=== PATIENT | female | born 1980 | race Caucasian/White ===

== ENCOUNTER 2016-11-13 19:51 | Inpatient (IN) | payer OTHER, MEDICAID ==
[~2016-11-13] VITALS: Ht 165.1 cm; Wt 85.3 kg
[2016-11-13 20:15] VITALS: BP 110/67; PULSE 63; RESP 18; TEMP 97.3; O2SAT 97
[2016-11-13] MEDS ORDERED: cefTRIAXone 1 GM in D5W 50 ML IV ONE (22:15)
[2016-11-13] MEDS ORDERED: POTASSIUM CHLORIDE 10 MEQ TAB.PRT.SR PO PRN (22:15)
[2016-11-13] MEDS ORDERED: DOCUSATE SODIUM 100 MG CAPSULE PO PRN (22:15)
[2016-11-13] MEDS ORDERED: LORazepam 2 MG/ML VIAL IVP PRN (22:15)
[2016-11-13] MEDS ORDERED: ONDANSETRON HCL 4 MG/2 ML VIAL IVP PRN (22:15)
[2016-11-13] MEDS ORDERED: ACETAMINOPHEN 325 MG TABLET PO PRN (22:15)
[2016-11-13] MEDS ORDERED: BEN50 PO (22:26)
[2016-11-13] MEDS ORDERED: LOP600 PO (22:26)
[2016-11-13] MEDS ORDERED: GLIM1TAB PO (22:26)
[2016-11-13] MEDS ORDERED: LISI-209 PO (22:26)
[2016-11-13] MEDS ORDERED: IBUP-1480 PO (22:26)
[2016-11-13] MEDS ORDERED: OMEP-130 PO (22:26)
[2016-11-13] MEDS ORDERED: SYN75 PO (22:26)
[2016-11-13] MEDS ORDERED: [UNRECOGNIZED DRUG - CODE] PO (22:26)
[2016-11-13] MEDS ORDERED: CALC500T3 PO (22:26)
[2016-11-13] MEDS ORDERED: METF750T PO (22:26)
[2016-11-13 22:52] LABS: BASOPHILS % (AUTO) 0.1 % (0.0-2.0); HEMATOCRIT 34.8 % (36-48); HEMOGLOBIN 11.8 g/dL (12.0-16.0); LYMPHOCYTES # (AUTO) 1.2 K/uL (1.0-5.5); LYMPHOCYTES % (AUTO) 13.3 % (20.5-51.5); MEAN CORPUSCULAR HEMOGLOBIN 30 pg (27-31); MEAN CORPUSCULAR HGB CONC 34 % (32-36); MEAN CORPUSCULAR VOLUME 89 fL (79.0-98.0); MONOCYTES # (AUTO) 0.3 K/uL (0.0-1.0); MONOCYTES % (AUTO) 3.8 % (1.7-9.3); NEUTROPHILS # (AUTO) 7.6 K/uL (1.8-7.7); NEUTROPHILS % (AUTO) 82.8 % (40.0-70.0); PLATELET COUNT (AUTO) 221 K/uL (130-430); RED CELL DISTRIBUTION WIDTH 13.2 % (9.0-15.0); WHITE BLOOD COUNT (AUTO) 9.1 K/uL (4.8-10.8)
[2016-11-13] MEDS ORDERED: cefTRIAXone 1 GM IVPB PREMIX 50 ML IV ONE (23:22)
[2016-11-13] MEDS: D5NS 1,000 ML IV SCH (23:25)
[2016-11-14 00:14] LABS: ALBUMIN 3.8 g/dL (3.4-4.8); CALCIUM 10.1 mg/dL (8.4-11.0); CREATININE 0.93 mg/dL (0.55-1.30); TOTAL BILIRUBIN 0.6 mg/dL (0.0-1.0); TOTAL PROTEIN, SERUM 8.2 g/dL (6.4-8.3)
[2016-11-14 00:18] LABS: PROTHROMBIN TIME 10.7 SECS (9.5-12.5)
[2016-11-14 01:02] VITALS: BP_SYST 105; BP_SYST 137; BP_DIAS 59; BP_DIAS 69; PULSE 58; PULSE 93; RESP 20; RESP 24; TEMP 97.2; TEMP 97.6; O2SAT 96; O2SAT 99
[2016-11-14] MEDS: MORPHINE 2 MG/ML INJ. SYRINGE IVP PRN ×3 (01:22→14:31)
[2016-11-14 04:50] VITALS: BP_SYST 106; BP_SYST 140; BP_DIAS 66; BP_DIAS 90; PULSE 57; PULSE 84; RESP 22; RESP 24; TEMP 97.6; TEMP 97.7; O2SAT 97; O2SAT 99
[2016-11-14 06:32] LABS: BASOPHILS % (AUTO) 0.1 % (0.0-2.0); EOSINOPHILS % (AUTO) 0.1 % (0.0-4.0); HEMATOCRIT 31.6 % (36-48); HEMOGLOBIN 10.9 g/dL (12.0-16.0); LYMPHOCYTES # (AUTO) 2.8 K/uL (1.0-5.5); LYMPHOCYTES % (AUTO) 34.8 % (20.5-51.5); MEAN CORPUSCULAR HEMOGLOBIN 31 pg (27-31); MEAN CORPUSCULAR HGB CONC 34 % (32-36); MEAN CORPUSCULAR VOLUME 90 fL (79.0-98.0); MONOCYTES # (AUTO) 0.8 K/uL (0.0-1.0); MONOCYTES % (AUTO) 9.4 % (1.7-9.3); NEUTROPHILS # (AUTO) 4.5 K/uL (1.8-7.7); NEUTROPHILS % (AUTO) 55.6 % (40.0-70.0); PLATELET COUNT (AUTO) 200 K/uL (130-430); RED CELL DISTRIBUTION WIDTH 13.3 % (9.0-15.0); WHITE BLOOD COUNT (AUTO) 8.1 K/uL (4.8-10.8)
[2016-11-14 06:37] LABS: CALCIUM 9.3 mg/dL (8.4-11.0); CREATININE 0.85 mg/dL (0.55-1.30); POTASSIUM 3.7 mmol/L (3.5-5.1)
[2016-11-14 08:00] VITALS: BP 129/84; PULSE 64; RESP 18; TEMP 98.7; O2SAT 99
[2016-11-14] MEDS ORDERED: POLYMYXIN 500,000/BACIT.10,000 UNITS in NS IRR 1 L IR ONE (09:51)
[2016-11-14] MEDS ORDERED: DEXTROSE 50% JECT 50 ML DISP.SYRIN IVP PRN (10:00)
[2016-11-14] MEDS ORDERED: LR 1,000 ML IV SCH (10:22)
[2016-11-14] MEDS ORDERED: HYDROmorphone 2 MG/ML VIAL IVP PRN ×2 (10:30)
[2016-11-14] MEDS ORDERED: ONDANSETRON HCL 4 MG/2 ML VIAL IVP PRN (10:30)
[2016-11-14] MEDS ORDERED: MEPERIDINE HCL/PF 25 MG/ML DISP.SYRIN IVP PRN ×2 (10:30)
[2016-11-14] MEDS ORDERED: HYDROmorphone 1 MG INJ. 1 MG/ML AMPUL IVP PRN (10:30)
[2016-11-14] MEDS: D5NS 1,000 ML IV SCH ×2 (10:45→23:15)
[2016-11-14] MEDS ORDERED: HYDROmorphone 1 MG INJ. 1 MG/ML AMPUL ONE (11:55)
[2016-11-14 12:05] VITALS: BP 119/68; PULSE 78; RESP 16; TEMP 97.5; O2SAT 93
[2016-11-14] MEDS ORDERED: fentaNYL CITRATE 250 MCG/5 ML AMP ONE (14:00)
[2016-11-14] MEDS ORDERED: CEFAZOLIN 2 GM IVPB PREMIX 50 ML IV ONE (14:00)
[2016-11-14] MEDS ORDERED: LR 1,000 ML IV.SOLN IV ONE (14:00)
[2016-11-14] MEDS ORDERED: ONDANSETRON HCL 4 MG/2 ML VIAL ONE (14:00)
[2016-11-14] MEDS ORDERED: BACITRACIN 50,000 UNITS VIAL ONE (14:00)
[2016-11-14] MEDS ORDERED: SEVOFLURANE 15 MIN GAS INH ONE (14:00)
[2016-11-14] MEDS ORDERED: MIDAZOLAM HCL 5 MG/5 ML VIAL ONE (14:00)
[2016-11-14] MEDS ORDERED: POLYMYXIN B SULFATE 500,000 UNITS VIAL ONE (14:00)
[2016-11-14] MEDS ORDERED: NS IRRIG SOLN 1000 ML IR ONE (14:00)
[2016-11-14] MEDS ORDERED: PROPOFOL 200MG/ 20ML VIAL (DIPRIVAN) IV ONE (14:00)
[2016-11-14] MEDS: CEFAZOLIN 2 GM IVPB PREMIX 50 ML IV SCH ×2 (14:36→22:29)
[2016-11-14] MEDS: INSULIN ASPART 100 UNITS/ML, 10 ML VIAL (NovoLOG) SUBCUT PRN ×2 (18:22→21:24)
[2016-11-14 19:50] VITALS: BP 115/66; PULSE 80; RESP 20; TEMP 98.1; O2SAT 96
[2016-11-14 19:55] VITALS: BP 115/66; PULSE 80; RESP 18; TEMP 98.1; O2SAT 96
[2016-11-14] MEDS: cefTRIAXone 1 GM in D5W 50 ML IV SCH (23:21)
[2016-11-15] VITALS (7 sets, daily range): BP systolic 105–132; BP diastolic 55–75; PULSE 56–99; RESP 16–21; TEMP 97.5–99; O2SAT 95–100
[2016-11-15] MEDS: MAGNESIUM SULFATE 50 ML IV PRN (00:46)
[2016-11-15] MEDS: CEFAZOLIN 2 GM IVPB PREMIX 50 ML IV SCH (06:07)
[2016-11-15] MEDS: INSULIN ASPART 100 UNITS/ML, 10 ML VIAL (NovoLOG) SUBCUT PRN ×4 (06:34→21:45)
[2016-11-15 07:20] LABS: BASOPHILS # (AUTO) 0.1 K/uL (0.0-0.2); BASOPHILS % (AUTO) 0.7 % (0.0-2.0); EOSINOPHILS % (AUTO) 0.1 % (0.0-4.0); HEMOGLOBIN 9.3 g/dL (12.0-16.0); LYMPHOCYTES # (AUTO) 1.7 K/uL (1.0-5.5); LYMPHOCYTES % (AUTO) 16.5 % (20.5-51.5); MEAN CORPUSCULAR HEMOGLOBIN 29 pg (27-31); MEAN CORPUSCULAR HGB CONC 32 % (32-36); MEAN CORPUSCULAR VOLUME 91 fL (79.0-98.0); MONOCYTES # (AUTO) 0.5 K/uL (0.0-1.0); MONOCYTES % (AUTO) 4.9 % (1.7-9.3); NEUTROPHILS # (AUTO) 7.8 K/uL (1.8-7.7); NEUTROPHILS % (AUTO) 77.8 % (40.0-70.0); PLATELET COUNT (AUTO) 207 K/uL (130-430); RED BLOOD CELL COUNT(AUTO) 3.17 MIL/uL (4.2-6.2); RED CELL DISTRIBUTION WIDTH 13.2 % (9.0-15.0); WHITE BLOOD COUNT (AUTO) 10.1 K/uL (4.8-10.8)
[2016-11-15 07:45] LABS: CALCIUM 8.8 mg/dL (8.4-11.0); CREATININE 0.9 mg/dL (0.55-1.30); POTASSIUM 3.8 mmol/L (3.5-5.1)
[2016-11-15] MEDS: NACL 0.9% 1,000 ML IV SCH ×2 (11:06→21:42)
[2016-11-15] MEDS: cefTRIAXone 1 GM in D5W 50 ML IV SCH (21:41)
[2016-11-15] MEDS: ZOLPIDEM TARTRATE 5 MG TABLET PO PRN (21:43)
[2016-11-16 07:19] LABS: BASOPHILS % (AUTO) 0.1 % (0.0-2.0); EOSINOPHILS # (AUTO) 0.1 K/uL (0.0-0.4); EOSINOPHILS % (AUTO) 0.6 % (0.0-4.0); HEMATOCRIT 30.8 % (36-48); HEMOGLOBIN 10.4 g/dL (12.0-16.0); LYMPHOCYTES # (AUTO) 2.8 K/uL (1.0-5.5); LYMPHOCYTES % (AUTO) 28.1 % (20.5-51.5); MEAN CORPUSCULAR HEMOGLOBIN 31 pg (27-31); MEAN CORPUSCULAR HGB CONC 34 % (32-36); MEAN CORPUSCULAR VOLUME 91 fL (79.0-98.0); MONOCYTES # (AUTO) 0.7 K/uL (0.0-1.0); MONOCYTES % (AUTO) 7.5 % (1.7-9.3); NEUTROPHILS # (AUTO) 6.2 K/uL (1.8-7.7); NEUTROPHILS % (AUTO) 63.7 % (40.0-70.0); PLATELET COUNT (AUTO) 175 K/uL (130-430); RED BLOOD CELL COUNT(AUTO) 3.39 MIL/uL (4.2-6.2); RED CELL DISTRIBUTION WIDTH 13.4 % (9.0-15.0); WHITE BLOOD COUNT (AUTO) 9.8 K/uL (4.8-10.8)
[2016-11-16 07:38] LABS: CALCIUM 8.6 mg/dL (8.4-11.0); CREATININE 0.65 mg/dL (0.55-1.30); POTASSIUM 3.9 mmol/L (3.5-5.1)
[2016-11-16 08:00] VITALS: BP 120/71; PULSE 78; RESP 18; TEMP 97.7; O2SAT 95
[2016-11-16] MEDS: MAGNESIUM SULFATE 50 ML IV PRN (08:16)
[2016-11-16] MEDS: MORPHINE 2 MG/ML INJ. SYRINGE IVP PRN (08:19)
[2016-11-16 12:00] VITALS: BP 109/69; PULSE 80; RESP 20; TEMP 97.8; O2SAT 96
[2016-11-16] MEDS: INSULIN ASPART 100 UNITS/ML, 10 ML VIAL (NovoLOG) SUBCUT PRN ×2 (12:04→18:18)
[2016-11-16 15:27] VITALS: BP 131/73; PULSE 88; RESP 19; TEMP 97.1; O2SAT 100
[2016-11-16] MEDS: NACL 0.9% 1,000 ML IV SCH (18:02)
[2016-11-16 19:30] VITALS: BP 119/72; PULSE 73; RESP 16; TEMP 97.7; O2SAT 96
[2016-11-16] MEDS: cefTRIAXone 1 GM in D5W 50 ML IV SCH (20:46)
[2016-11-17] VITALS (7 sets, daily range): BP systolic 97–127; BP diastolic 50–132; PULSE 60–98; RESP 14–19; TEMP 96.7–98.9; O2SAT 84–99
[2016-11-17] MEDS: ZOLPIDEM TARTRATE 5 MG TABLET PO PRN (01:53)
[2016-11-17] MEDS: MORPHINE 2 MG/ML INJ. SYRINGE IVP PRN ×2 (01:56→09:20)
[2016-11-17] MEDS: NACL 0.9% 1,000 ML IV SCH (06:21)
[2016-11-17 06:58] LABS: BASOPHILS % (AUTO) 0.1 % (0.0-2.0); EOSINOPHILS # (AUTO) 0.1 K/uL (0.0-0.4); EOSINOPHILS % (AUTO) 1.3 % (0.0-4.0); HEMATOCRIT 30.1 % (36-48); HEMOGLOBIN 9.7 g/dL (12.0-16.0); LYMPHOCYTES # (AUTO) 3.3 K/uL (1.0-5.5); LYMPHOCYTES % (AUTO) 35.5 % (20.5-51.5); MEAN CORPUSCULAR HEMOGLOBIN 30 pg (27-31); MEAN CORPUSCULAR HGB CONC 32 % (32-36); MEAN CORPUSCULAR VOLUME 92 fL (79.0-98.0); MONOCYTES # (AUTO) 0.6 K/uL (0.0-1.0); MONOCYTES % (AUTO) 6.5 % (1.7-9.3); NEUTROPHILS # (AUTO) 5.2 K/uL (1.8-7.7); NEUTROPHILS % (AUTO) 56.6 % (40.0-70.0); PLATELET COUNT (AUTO) 190 K/uL (130-430); RED BLOOD CELL COUNT(AUTO) 3.28 MIL/uL (4.2-6.2); WHITE BLOOD COUNT (AUTO) 9.2 K/uL (4.8-10.8)
[2016-11-17 07:12] LABS: CALCIUM 8.8 mg/dL (8.4-11.0); CREATININE 0.54 mg/dL (0.55-1.30); POTASSIUM 3.8 mmol/L (3.5-5.1)
== END 2016-11-17 19:43 | DRG 511 ==
LOC: SMU 20:42
PROVIDERS: ADMIT General Practice; ATTEND General Practice
PROC: 0PSK04Z Reposition Right Ulna with Internal Fixation Device, Open Approach (ICD-10-PCS; principal; 2016-11-14 10:15)
DX: S52.021B Displaced fracture of olecranon process without intraarticular extension of right ulna, initial encounter for open fracture type I or II (principal); L03.113 Cellulitis of right upper limb; E87.1 Hypo-osmolality and hyponatremia; S52.271B Monteggia's fracture of right ulna, initial encounter for open fracture type I or II; S52.121A Displaced fracture of head of right radius, initial encounter for closed fracture; E03.9 Hypothyroidism, unspecified; E11.65 Type 2 diabetes mellitus with hyperglycemia; E78.1 Pure hyperglyceridemia; E78.5 Hyperlipidemia, unspecified; I10 Essential (primary) hypertension; K21.9 Gastro-esophageal reflux disease without esophagitis; Y92.480 Sidewalk as the place of occurrence of the external cause; Y93.01 Activity, walking, marching and hiking; W10.1XXA Fall (on)(from) sidewalk curb, initial encounter; R74.0 Nonspecific elevation of levels of transaminase and lactic acid dehydrogenase [LDH]; Y99.8 Other external cause status; Z90.49 Acquired absence of other specified parts of digestive tract
CPT/HCPCS: 36415; 71010; 73090; 76001; 76700-TC; 80048; 80053; 82962; 83735-TC; 84702-TC; 85025; 85610-TC; 86886; 86900; 86901; 87081; 93005; 97110-GP; 97116-GP; 97530-GP; C1713; C1769; J0690; J0696; J1170; J1815; J2060; J2250; J2270; J2405; J2704; J3010; J3475; J7030; J7042; J7060; J7120